=== PATIENT | male | born 1965 | race American Indian/Alaskan Native ===

== ENCOUNTER 2022-07-22 00:33 | Emergency (ER) | payer BC ==
[2022-07-22 00:46] VITALS: BP 144/86
--- NOTE | 2022-07-22 01:34 | XRay Report ---
CHEST 2 VIEWS INDICATION / CLINICAL INFORMATION: Chest Pain. COMPARISON: None available. FINDINGS: SUPPORT DEVICES: None. HEART / MEDIASTINUM: No significant abnormality. LUNGS / PLEURA: No significant pulmonary or pleural abnormality. No pneumothorax. ADDITIONAL FINDINGS: No significant additional findings. IMPRESSION: 1. No acute findings. Signer Name: Heather Villafana MD Signed: 07/22/2022 1:30 AM Workstation Name: [id number]
[2022-07-22 02:22] LABS: Hematocrit 45.1 % (35.5-45.6); Hemoglobin 14.4 gm/dl (11.8-15.2); Mean Corpuscular HGB Conc 32 % (32-34); Mean Corpuscular Volume 92 fl (84-94); Platelet Count 171 K/mm3 (140-440); Red Blood Count 4.91 M/mm3 (3.65-5.03); Red Cell Distribution Width 12.9 % (13.2-15.2)
[2022-07-22 02:41] LABS: Alanine Aminotransferase 16 units/L (7-56); Albumin 4.1 g/dL (3.9-5); BUN/Creatinine Ratio 17; Blood Urea Nitrogen 17 mg/dL (9-20); Calcium 9.1 mg/dL (8.4-10.2); Hemolysis Index 3
[2022-07-22 03:07] LABS: Basophils % (Manual) 0 % (0.0-1.8); Total Cells Counted 100
[2022-07-22 03:08] LABS: Platelet Estimate Consistent w Auto
--- NOTE | 2022-07-22 10:33 | Electrocardiograph Report ---
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
== END 2022-07-22 04:30 | disposition left against medical advice (07) ==
LOC: ED 00:33
DX: R07.9 Chest pain, unspecified (principal); R31.9 Hematuria, unspecified; Z53.21 Procedure and treatment not carried out due to patient leaving prior to being seen by health care provider
CPT/HCPCS: 36415; 71046; 80053; 84484; 85007; 85025; 93005